=== PATIENT | female | born 1975 | race African-American/Black ===

== ENCOUNTER 2017-12-10 23:39 | Emergency (ER) | payer OTHER ==
[~2017-12-10] VITALS: Ht 172.7 cm; Wt 93.4 kg
[2017-12-11 00:21] VITALS: Ht 172.7 cm; Wt 93.4 kg
[2017-12-11 02:53] LABS: BASOPHIL % 0.4 % (0-2); PLATELET COUNT 302 x10^3mcL (130-400)
[2017-12-11 03:00] LABS: RED CELL DISTRIBUTION WIDTH 24.5 % (11.5-14.5)
[2017-12-11 03:02] LABS: CALCIUM 7.9 mg/dL (8.5-10.1); CARBON DIOXIDE 24.6 mmol/L (21-32); CHLORIDE SERUM 107 mmol/L (98-107); CREATININE SERUM 0.8 mg/dL (0.6-1.0); GFR1 > 60 mL/min; GLUCOSE SERUM 99 mg/dL (74-106); POTASSIUM SERUM 4.1 mmol/L (3.5-5.1); SODIUM SERUM 133 mmol/L (136-145)
[2017-12-11 03:06] LABS: ALKALINE PHOSPHATASE 65 U/L (46-116); ALT/SGPT 25 U/L (14-59); AST/SGOT 21 U/L (15-37); BILIRUBIN TOTAL 0.18 mg/dL (0.20-1.00); TOTAL PROTEIN, SERUM 6.3 g/dL (6.4-8.2)
[2017-12-11 03:08] LABS: ALBUMIN 2.6 g/dL (3.4-5.0)
[2017-12-11 03:21] LABS: ovalocyte/elliptocyte 2+; rbc morphology (normal/abnorm) ABNORMAL (NORMAL); tear drop cell (dacryocyte) 2+
[2017-12-11 05:55] VITALS: BP 125/69
== END 2017-12-11 05:55 | disposition home or self-care (01) ==
LOC: ED 23:39
PROVIDERS: Emergency Medicine
DX: N83.202 Unspecified ovarian cyst, left side (principal); N93.9 Abnormal uterine and vaginal bleeding, unspecified; I10 Essential (primary) hypertension
CPT/HCPCS: 36415